=== PATIENT | female | born 1980 | race Caucasian/White ===

== ENCOUNTER → 2018-06-10 | Outpatient (CLI) | payer OTHER ==
[~2018-06-10] MED LIST: GASTROGRAFIN SOLUTION 30ML (Q9963) As Ordered; ISOVUE-370 76% 100ML VIAL (Q9967) As Ordered
== END ==
LOC: M RAD 14:55
DX: R93.5 Abnormal findings on diagnostic imaging of other abdominal regions, including retroperitoneum (principal); R10.9 Unspecified abdominal pain
CPT/HCPCS: Q9963

== ENCOUNTER → 2018-07-05 | Outpatient (CLI) | payer OTHER ==
[2018-07-05 14:28] LABS: BASO % 0.3 % (0.0-1.0); EOS # 0.1 10^3/uL (0.0-0.50); EOS % 1.4 % (0.0-3.0); HEMATOCRIT 39.3 % (36.0-47.0); HEMOGLOBIN 13.6 g/dl (12.0-15.5); LYMPH % 33.6 % (24.0-44.0); MEAN CORPUSCULAR HEMOGLOBIN 29.3 pg (27.0-33.0); MEAN CORPUSCULAR HGB CONC 34.6 g/dl (32.0-36.5); MEAN CORPUSCULAR VOLUME 84.7 fl (80.0-96.0); MONO # 0.5 10^3/uL (0.0-0.8); MONO % 8.1 % (0.0-5.0); NEUTROPHILS # 3.3 10^3/uL (1.8-7.7); NEUTROPHILS % 56.6 % (36.0-66.0); PLATELET COUNT, AUTOMATED 253 10^3/uL (150-450); RED BLOOD COUNT 4.64 10^6/uL (4.00-5.40); WHITE BLOOD COUNT 5.8 10^3/uL (4.0-10.0)
[2018-07-05 15:06] LABS: ALBUMIN 4.1 GM/DL (3.2-5.2); ALT/SGPT 21 U/L (12-78); BILIRUBIN,TOTAL 0.2 MG/DL (0.2-1.0); BLOOD UREA NITROGEN 14 MG/DL (7-18); CALCIUM LEVEL 9.6 MG/DL (8.5-10.1); CARBON DIOXIDE LEVEL 27 MEQ/L (21-32); CHLORIDE LEVEL 104 MEQ/L (98-107); CREATININE FOR GFR 0.68 MG/DL (0.55-1.30); FREE T4 0.94 NG/DL (0.76-1.46); GLOMERULAR FILTRATION RATE > 60.0 (>60); GLUCOSE, FASTING 91 MG/DL (70-100); IMMUNOGLOBULIN A 114 MG/DL (70-400); POTASSIUM SERUM 4.2 MEQ/L (3.5-5.1); SODIUM LEVEL 139 MEQ/L (136-145); THYROID STIMULATING HORMONE 0.625 uIU/ML (0.358-3.740); TOTAL PROTEIN 7.4 GM/DL (6.4-8.2)
== END ==
LOC: M LAB 13:59
PROVIDERS: ATTEND Internal Medicine Gastroenterology
DX: K58.0 Irritable bowel syndrome with diarrhea (principal)

== ENCOUNTER → 2018-07-29 | Outpatient (CLI) | payer OTHER ==
--- NOTE | 2018-07-29 11:22 | REP ---
Hepatobiliary scan and gallbladder ejection fraction: History: Epigastric pain. Technique: 6.6 mCi of technetium-99m mebrofenin was injected and sequential anterior images are acquired. 65 minutes after the mebrofenin injection, the patient consumed 8 ounces Ensure and an additional 60 minutes of imaging was acquired. Regions of interest are plotted around the gallbladder. Findings: The initial hepatocellular parenchymal uptake phase is normal and homogeneous. Intra- and extra-hepatic bile ducts and duodenum are labeled by the 10 -minute image. The gallbladder is first labeled on the 10 -minute image. There is normal washout from the liver parenchyma into the gallbladder and small intestine on subsequent images. The gallbladder ejection fraction is 34 %. Values greater than 35 % are considered normal with this technique. Impression: Normal hepatobiliary scan and borderline gallbladder ejection fraction. Electronically Signed by Monroe Silva MD 07/29/2018 11:13 A
== END ==
LOC: M RAD 08:45
PROVIDERS: ATTEND Internal Medicine Gastroenterology
DX: R10.13 Epigastric pain (principal); K82.8 Other specified diseases of gallbladder
CPT/HCPCS: 78227; A9537; J2805

== ENCOUNTER 2018-08-22 10:18 | Day surgery (SDC) | payer OTHER ==
[~2018-08-22] VITALS: Ht 167.6 cm; Wt 49.9 kg
[~2018-08-22 10:18] MED LIST changes: -GASTROGRAFIN SOLUTION 30ML (Q9963) As Ordered; -ISOVUE-370 76% 100ML VIAL (Q9967) As Ordered; +LIDOCAINE 2% INJ 100 MG/5 ML SDV (FOR ANES.) As Ordered ONE; +MULT1TAB10 PO; +NS 1,000 ML IV ONE; +PROPOFOL 500 MG/50 ML VIAL As Ordered ONE; +THYR60TA PO
--- NOTE | 2018-08-22 11:20 | ROOR ---
Patient Name: Lexi Carreon Procedure Date: 08/22/2018 11:06 AM Date of : 1980 Age: 38 Room: [facility] [place] Gender: Female Note Status: Finalized Procedure: Upper GI endoscopy Indications: Abdominal pain, Nausea Providers: Yoav BALDWIN MD Referring MD: MARÍA DANIEL MD Requesting Provider: Medicines: Monitored Anesthesia Care Complications: No immediate complications. Procedure: Pre-Anesthesia Assessment: - The heart rate, respiratory rate, oxygen saturations, blood pressure, adequacy of pulmonary ventilation, and response to care were monitored throughout the procedure. The Endoscope was introduced through the mouth, and advanced to the second part of duodenum. The upper GI endoscopy was accomplished without difficulty. The patient tolerated the procedure well. Findings: Diffuse mild inflammation characterized by erythema was found in the gastric antrum. Biopsies were taken with a cold forceps for Helicobacter pylori testing. The exam was otherwise without abnormality. Impression: - Mild gastritis. Biopsied. - The examination was otherwise normal. Recommendation: - Continue present medications. - Telephone endoscopist for pathology results in 2 weeks. Yoav Baldwin MD Yoav BALDWIN MD 08/22/2018 11:19:56 AM This report has been signed electronically. Number of Addenda: 0 Note Initiated On: 08/22/2018 11:06 AM Estimated Blood Loss: Estimated blood loss: none.
--- NOTE | 2018-08-22 11:33 | ROOR ---
Patient Name: Lexi Carreon Procedure Date: 08/22/2018 11:07 AM Date of : 1980 Age: 38 Room: [facility] Gender: Female Note Status: Finalized Procedure: Colonoscopy Indications: Irritable bowel syndrome with diarrhea Providers: Yoav BALDWIN MD Referring MD: MARÍA DANIEL MD Requesting Provider: Medicines: Monitored Anesthesia Care Complications: No immediate complications. Procedure: Pre-Anesthesia Assessment: - The heart rate, respiratory rate, oxygen saturations, blood pressure, adequacy of pulmonary ventilation, and response to care were monitored throughout the procedure. The Colonoscope was introduced through the anus and advanced to 15 cm into the ileum. The colonoscopy was performed without difficulty. The patient tolerated the procedure well. The quality of the bowel preparation was good. Findings: The perianal and digital rectal examinations were normal. Internal hemorrhoids were found during retroflexion. The hemorrhoids were medium-sized. The entire examined colon appeared normal on direct and retroflexion views. The terminal ileum appeared normal. Retroflexion in the right colon was performed. Impression: - Small/medium Internal hemorrhoids. - The entire colon is normal on direct and retroflexion views. - The examined portion of the ileum was normal. - Irritable bowel (IBS-D) suspected. - No specimens collected. Recommendation: - Use Bentyl (dicyclomine) 20 mg PO Q 4-6 hrs PRN 30 min AC. - Continue present medications. Yoav Baldwin MD Yoav BALDWIN MD 08/22/2018 11:33:34 AM This report has been signed electronically. Number of Addenda: 0 Note Initiated On: 08/22/2018 11:07 AM Estimated Blood Loss: Estimated blood loss: none.
[2018-08-22 11:50] VITALS: BP 112/67
== END 2018-08-22 12:02 | disposition home or self-care (01) ==
LOC: M OPP 10:18
PROVIDERS: ATTEND Internal Medicine Gastroenterology
DX: K58.0 Irritable bowel syndrome with diarrhea (principal); K64.8 Other hemorrhoids; R10.9 Unspecified abdominal pain; R11.0 Nausea; K29.70 Gastritis, unspecified, without bleeding

== ENCOUNTER → 2019-12-01 | Outpatient (CLI) | payer OTHER ==
[~2019-12-01] MED LIST changes: -LIDOCAINE 2% INJ 100 MG/5 ML SDV (FOR ANES.) As Ordered ONE; -NS 1,000 ML IV ONE; -PROPOFOL 500 MG/50 ML VIAL As Ordered ONE
--- NOTE | 2019-12-20 10:00 | REP ---
BILATERAL MAMMOGRAM WITH 3D TOMOSYNTHESIS AND BILATERAL BREAST ULTRASOUND: Family history of breast cancer in sister at age 39. [facility] lifetime risk of breast cancer. 26.7%. Reportedly, the patient has a prior negative biopsy in the left breast 2016. She has left breast pain since July in the region of the prior biopsy left breast. Comparison mammogram 02/27/2017 and 04/07/2016. MLO and CC views of both breasts performed with 3D tomosynthesis. The breast parenchyma is extremely dense limiting the sensitivity of the mammogram. Metallic biopsy clip is seen medially. There is an adjacent well-circumscribed nodule approximately 7 mm in diameter. In the medial right breast, an oval well-circumscribed nodule is seen which is not identified on prior studies measuring 1 cm in maximum diameter. Otherwise, I see no mammographic evidence of mass or architectural distortion. No clustered microcalcifications are seen. Real-time sonographic evaluation of medial aspect of each performed. In the right breast medially at 4-o'clock position approximately 1 cm from the nipple is a heterogeneous solid nodule which measures 1.3 x 0.8 x 1.0 cm. Recommend ultrasound-guided biopsy. In the left breast at the 9-o'clock position 3 cm from the nipple, there is a hypoechoic nodule adjacent to the biopsy clip. This measures 6 x 4 x 8 mm. This is unchanged since the prior ultrasound of 04/07/2016. Near the nipple at 12-o'clock position, there is a hypoechoic nodule 8 x 4 x 10 mm. This also appears unchanged. At the 3-o'clock position of the left breast near the nipple, there is an oval hypoechoic area, which was not previously imaged with ultrasound. This appears somewhat cystic. There are internal low level echoes. This measures 7 x 4 x 11 mm and is probably benign. There is a normal size left axillary lymph node seen with a morphologically normal appearing fatty hilum. IMPRESSION: BIRADS 4: BI-RADS/ACR category 4 mammogram. Suspicious Abnormality - biopsy should be considered. ACR 4 suspicious. In the right breast medially, there is an oval nodule not seen on prior mammograms corresponding to a solid nodule by ultrasound, measuring 13 x 8 x 10 mm. Recommend ultrasound-guided biopsy. This is at the 4 -o'clock position of the right breast. Left breast demonstrates two stable hypoechoic nodules at 9-o'clock to 12-o'clock position compared to a prior ultrasound of 04/07/2016. There also appears to be a small oval cyst containing low level echoes at 3-o'clock position. There is a normal appearing left axillary lymph node. No suspicious abnormalities are seen in the left breast. Also given the patient's family history and elevated lifetime risk of breast cancer, 26.7%, recommend supplemental MRI of the breast in 6 months.
== END ==
LOC: M WHC 08:19
PROVIDERS: ATTEND Obstetrics & Gynecology
DX: N63.0 Unspecified lump in unspecified breast (principal); Z80.3 Family history of malignant neoplasm of breast
CPT/HCPCS: 76642; 77066; G0279